=== PATIENT | female | born 1980 | race Caucasian/White ===

== ENCOUNTER 2017-09-28 21:32 | Emergency (ER) | payer OTHER ==
[~2017-09-28] VITALS: Ht 154.9 cm; Wt 131.5 kg
[2017-09-28 22:13] LABS: ABSOLUTE BASOPHILS 0.1 thou/uL (0.0-0.2); ABSOLUTE EOSINOPHILS 0.2 thou/uL (0.0-0.7); ABSOLUTE LYMPHOCYTES 2.4 thou/uL (0.8-5.3); ABSOLUTE MONOCYTES 0.4 thou/uL (0.0-1.2); ABSOLUTE NEUTROPHILS 6.5 thou/uL (1.6-8.1); BASOPHILS 0.6 %; EOSINOPHILS 1.8 %; HEMOGLOBIN 12.4 gm/dL (12.0-15.0); LYMPHOCYTES 25.2 %; MCH 21.3 pg (26.0-34.0); MCHC 31.1 g/dL (28.0-37.0); MCV 68.7 fL (80.0-100.0); MONOCYTES 4.6 %; MPV 8.8 fl. (7.2-11.1); NUCLEATED RBCS 0 /100WBC; PLATELET COUNT* 210 thou/uL (150-400); POLYS 67.8 %; RBC 5.82 mil/uL (4.20-5.00); RDW-CV 19.7 % (10.5-14.5); WBC 9.6 thou/uL (4.0-11.0)
[2017-09-28 22:23] LABS: ANION GAP 7 mmol/L (7-16); BUN 9 mg/dL (7-18); CHLORIDE 100 mmol/L (98-107); CO2 33 mmol/L (21-32); CREATININE 0.6 mg/dL (0.6-1.3); GLUCOSE 107 mg/dL (70-99); POTASSIUM 3.7 mmol/L (3.5-5.1); SODIUM 140 mmol/L (136-145)
[2017-09-28 22:32] LABS: URINE BILIRUBIN NEGATIVE (Negative); URINE BLOOD 2+ (Negative); URINE CLARITY CLEAR; URINE COLOR YELLOW; URINE GLUCOSE-RANDOM NEGATIVE (Negative); URINE KETONES NEGATIVE (Negative); URINE LEUKOCYTES-REFLEX NEGATIVE (Negative); URINE NITRITE-REFLEX NEGATIVE (Negative); URINE PROTEIN 2+ (Negative); URINE SPECIFIC GRAVITY 1.025 (1.005-1.030); URINE UROBILINOGEN 0.2 E.U./dl (0.2-1.0)
[2017-09-28 22:34] LABS: ALBUMIN 3.5 g/dL (3.4-5.0); ALKALINE PHOSPHATASE 104 U/L (46-116); NT-PRO BRAIN NAT PEPTIDE 286 pg/mL (<300); SGOT 15 U/L (15-37); SGPT 26 U/L (30-65); TOTAL BILIRUBIN 0.3 mg/dL (<0.1-1.0); TOTAL PROTEIN 8.4 g/dL (6.4-8.2); TROPONIN-I LEVEL <0.06 ng/mL (<0.06)
[2017-09-28 22:41] LABS: BACTERIA-REFLEX >30 Many /HPF (None Seen); CASTS None Seen /LPF (None Seen); CRYSTALS None Seen /LPF (None Seen); MUCUS 4-6 Moderate strn/LPF (None Seen); SQUAMOUS 0-3 Few /LPF (0-3); TRANSITIONAL EPITHEL CELL 0-3 Few /LPF (None Seen); WBC CLUMPS Few (None Seen)
[2017-09-28 22:46] LABS: HYPOCHROMASIA 2+; MICROCYTES 2+; POLYCHROMASIA Occasional
[2017-09-28] MEDS ORDERED: IBUPROFEN 800800 M1 PO (23:24)
[2017-09-28] MEDS ORDERED: MACROBID 100 M100 M1 PO (23:38)
[2017-09-28] MEDS ORDERED: LISINOPRIL-HCT1 EACH PO (23:54)
[2017-09-28 23:57] VITALS: BP 209/106
--- NOTE | 2017-10-01 11:34 | EKG ---
[place] [address] ELECTROCARDIOGRAM REPORT Name: RAMA VILLALTAGEOVANNI VAUGHN [id number] Admission: 09/28/17 Attend Phys: Discharge: 09/28/17 Date of : 82 Report #: [id number] THIS REPORT FOR: //name// [facility] ED Test Date: 2017-09-28 Test Time: 23:13:23 Pat Name: BHASKAR VILLALTA Department: Room: Gender: F [employer] Installer: SAL Mtz : 1980 Requested By: Kassie Savage Order Number: [id number] MD: Bruno Britt Measurements Intervals [place] Rate: 79 P: 86 WV: 135 QRS: 76 QRSD: 98 T: 42 QT: 400 QTc: 459 Interpretive Statements Sinus rhythm Minor nonspecific st-t changes No previous ECG available for comparison Electronically Signed On 10-01-2017 11:34:23 CDT by Bruno Britt [email or web address] <ELECTRONICALLY SIGNED> By: Bruno Britt MD, [facility] 10/01/17 1134 2313 2313 Bruno Britt MD, FACC /EPI
== END 2017-09-28 23:59 | disposition home or self-care (01) ==
LOC: M.ERS 21:32
PROVIDERS: Nurse Practitioner Family
DX: M75.82 Other shoulder lesions, left shoulder (principal); R03.0 Elevated blood-pressure reading, without diagnosis of hypertension; N39.0 Urinary tract infection, site not specified; J45.909 Unspecified asthma, uncomplicated; Z88.0 Allergy status to penicillin

== ENCOUNTER 2018-03-17 15:39 | Emergency (ER) | payer OTHER ==
[~2018-03-17] VITALS: Ht 154.9 cm; Wt 127.0 kg
[~2018-03-17 15:39] MED LIST: IBUPROFEN 800800 M1 PO; LISINOPRIL-HCT1 EACH PO; MACROBID 100 M100 M1 PO
[2018-03-17 15:45] VITALS: BP 183/64
[2018-03-17] MEDS ORDERED: ZESTORETIC 20-1 EAC1 PO (15:47)
[2018-03-17] MEDS ORDERED: FLONASE 0.05%50 MCG NASAL (16:21)
[2018-03-17] MEDS ORDERED: VENTOLIN HFA 1818 GM INH (16:21)
== END 2018-03-17 16:27 | disposition home or self-care (01) ==
LOC: M.ERS 15:39
DX: J45.909 Unspecified asthma, uncomplicated (principal); I10 Essential (primary) hypertension; Z88.0 Allergy status to penicillin